=== PATIENT | female | born 1980 | race Caucasian/White ===

== ENCOUNTER 2020-04-13 11:10 | Outpatient (CLI) | payer OTHER ==
[~2020-04-13 11:10] MED LIST: CELEBREX100 MG PO
== END 2020-04-13 11:23 ==
LOC: RX STUDY 11:10 → RAD 11:10
PROVIDERS: ATTEND Internal Medicine Endocrinology, Diabetes & Metabolism
DX: N97.1 Female infertility of tubal origin (principal)